=== PATIENT | male | born 1995 | race Caucasian/White ===

== ENCOUNTER 2017-03-26 10:55 | Emergency (ER) | payer MEDICAID ==
[~2017-03-26] VITALS: Ht 185.4 cm; Wt 78.9 kg
[2017-03-26 10:57] VITALS: BP 114/75
== END 2017-03-26 13:52 | disposition left against medical advice (07) ==
LOC: ED 10:55
DX: S81.012D Laceration without foreign body, left knee, subsequent encounter (principal); Z53.21 Procedure and treatment not carried out due to patient leaving prior to being seen by health care provider

== ENCOUNTER 2018-03-03 11:57 | Emergency (ER) | payer MEDICAID ==
[~2018-03-03] VITALS: Ht 185.4 cm; Wt 88.2 kg
[2018-03-03 12:01] VITALS: Ht 185.4 cm; Wt 88.2 kg
[2018-03-03 12:42] LABS: BASOPHIL % 0.5 % (0-2); PLATELET COUNT 177 x10^3mcL (130-400); RED CELL DISTRIBUTION WIDTH 13.3 % (11.5-14.5)
[2018-03-03 13:18] LABS: AMPHETAMINE QUAL UR NONE DETECTED (See below)
[2018-03-03 13:35] LABS: CALCIUM 8.6 mg/dL (8.5-10.1); CARBON DIOXIDE 32.1 mmol/L (21-32); CHLORIDE SERUM 104 mmol/L (98-107); GFR1 > 60 mL/min; GLUCOSE SERUM 93 mg/dL (74-106); SODIUM SERUM 137 mmol/L (136-145)
[2018-03-03 13:40] LABS: ALBUMIN 4.1 g/dL (3.4-5.0); ALKALINE PHOSPHATASE 127 U/L (46-116); ALT/SGPT 25 U/L (16-63); AST/SGOT 21 U/L (15-37); BILIRUBIN TOTAL 0.5 mg/dL (0.20-1.00); TOTAL PROTEIN, SERUM 8.1 g/dL (6.4-8.2)
[2018-03-03 13:49] VITALS: BP 127/79
[2018-03-03 13:51] LABS: CK-MB 0.5 ng/mL (0-3.6)
== END 2018-03-03 14:46 | disposition home or self-care (01) ==
LOC: ED 11:57
PROVIDERS: Emergency Medicine
DX: R07.89 Other chest pain (principal)
CPT/HCPCS: 36415; 83880; 85378; Q0092

== ENCOUNTER 2018-03-08 19:42 | Emergency (ER) | payer MEDICAID ==
[~2018-03-08] VITALS: Ht 188 cm; Wt 86.2 kg
[2018-03-08 19:51] VITALS: Ht 188 cm; Wt 86.2 kg
[2018-03-08 20:20] VITALS: BP 159/82
== END 2018-03-08 20:20 | disposition home or self-care (01) ==
LOC: ED 19:42
DX: K03.81 Cracked tooth (principal)